=== PATIENT | female | born 2000 | race African-American/Black ===

== ENCOUNTER 2018-07-09 20:44 | Emergency (ER) | payer OTHER ==
[~2018-07-09] VITALS: Ht 160 cm; Wt 54.4 kg
[2018-07-09 20:50] VITALS: BP 123/61
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
[2018-07-09] MEDS ORDERED: Lidocaine HCl 2% Jelly 6ml Tube TOPIC ONE (21:30)
[2018-07-09 21:44] LABS: APPEARANCE,URINE CLEAR; BILIRUBIN, URINE NEGATIVE (NEGATIVE); COLOR,URINE PALE YELLOW; GLUCOSE, URINE (UA) NEGATIVE (NEGATIVE); KETONES,URINE 1+ (NEGATIVE); LEUKOCYTE ESTERASE ,URINE 1+ (NEGATIVE); NITRITE,URINE NEGATIVE (NEGATIVE); PH,URINE 7 (4.5-8.0); PROTEIN,URINE 3+ (NEGATIVE); UROBILINOGEN,URINE 4 MG/DL (0.0-1.0)
[2018-07-09] MEDS ORDERED: ACETAMINOPHEN500 M3 ORAL (22:17)
[2018-07-09] MEDS ORDERED: LD2JL30 TOPIC (22:17)
[2018-07-09] MEDS ORDERED: IBUPROFEN600 MG ORAL (22:17)
[2018-07-09 22:25] VITALS: BP 128/65
--- NOTE | 2018-07-09 22:25 | NUR ---
ED Nurse Note: patient is being discharged from ED alert and oriented x4, ambulatory with a steady gait, VSS. patient acknowledged the need to follow up with PMD within a week if symptoms dont improve, ID band removed, all belongings sent home with patient
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
--- NOTE | 2018-07-10 10:47 | Diagnostic Imaging Report ---
Indication: Back pain Comparison: None Findings: 3 views of the lumbar spine were obtained. No acute fracture or malalignment is identified. Vertebral body heights and disk spaces are well maintained. Posterior elements are unremarkable. Impression: No acute findings.
--- NOTE | 2018-07-10 10:50 | Diagnostic Imaging Report ---
Indication: Right arm pain Findings: 2 views of the right humerus were obtained. No acute fractures, malalignment, erosions or periostitis are identified. Bone mineralization is within normal limits. Soft tissues are unremarkable. Impression: Negative examination of the humerus
== END 2018-07-09 22:25 | disposition home or self-care (01) ==
LOC: EMR 21:09
DX: S40.021A Contusion of right upper arm, initial encounter (principal); S20.419A Abrasion of unspecified back wall of thorax, initial encounter; V03.90XA Pedestrian on foot injured in collision with car, pick-up truck or van, unspecified whether traffic or nontraffic accident, initial encounter; Y92.410 Unspecified street and highway as the place of occurrence of the external cause
CPT/HCPCS: 72020; 81003; 81025; 99284

== ENCOUNTER 2018-07-27 20:08 | Emergency (ER) | payer OTHER ==
[~2018-07-27] VITALS: Ht 157.5 cm; Wt 54.4 kg
[~2018-07-27 20:08] MED LIST: ACETAMINOPHEN500 M3 ORAL; IBUPROFEN600 MG ORAL; LD2JL30 TOPIC
[2018-07-27 20:25] VITALS: BP 119/72
--- NOTE | 2018-07-27 20:28 | NUR ---
ED Nurse Note: Pt c/o skin abscess (she concern maybe herpes and got it from her girlfriend) for 4 days, abscess is on upper lip, hands, perineum area. as per studio operations engineer in charge asessment and inspection in vaginal area, unknown leasions look "pimple like eruptions" that are located on the labia and is not activly bleeding.
[2018-07-27 20:59] LABS: APPEARANCE,URINE CLOUDY; BILIRUBIN, URINE NEGATIVE (NEGATIVE); GLUCOSE, URINE (UA) NEGATIVE (NEGATIVE); KETONES,URINE NEGATIVE (NEGATIVE); LEUKOCYTE ESTERASE ,URINE 2+ (NEGATIVE); NITRITE,URINE NEGATIVE (NEGATIVE); PH,URINE 6 (4.5-8.0); PROTEIN,URINE 3+ (NEGATIVE); UROBILINOGEN,URINE 4 MG/DL (0.0-1.0)
[2018-07-27] MEDS ORDERED: Cephalexin 500mg cap ORAL ONE (21:00)
[2018-07-27 21:01] LABS: COLOR,URINE YELLOW
--- NOTE | 2018-07-27 21:13 | Emergency Room Report ---
History of Present Illness General Chief Complaint: Skin Rash/Abscess Source: Patient Present Illness HPI Patient presents with several complaints. She has broken out with a rash on her palms underneath her nose with a lymph node under her chin and also in her pubic area. She believes she might have been exposed to herpes. Also she was told that her partner had impetigo several days ago. She denies any fevers or chills. She's on her period at this time. She denies any discharge or dysuria. She states to skin lesions are not painful. She denies having herpes in the past. This menstruation is normal for her. No upper respiratory symptoms, sore throat, nausea, vomiting, diarrhea, joint pain or other lymph node enlargement. She is worried but not depressed. Apparently her partner was just released from group home. Allergies: Coded Allergies: No Known Allergies (Unverified , 07/09/18) Patient History Past Medical History: see triage record Social History: Reports: smoking Social History Narrative Here with her father Now: No Reviewed Nursing Documentation: PMH: Agreed; PSxH: Agreed Nursing Documentation-PMH Past Medical History: No Stated History Review of Systems All Other Systems: negative except mentioned in HPI Physical Exam Vital Signs Date Time Temp Pulse Resp B/P (MAP) Pulse Ox O2 Delivery O2 Flow Rate FiO2 07/27/18 20:21 97.5 84 20 119/72 98 07/27/18 20:25 Room Air Sp02 EP Interpretation: reviewed, normal General Appearance: well appearing, no apparent distress, alert, GCS 15 Head: normocephalic, atraumatic Eyes: bilateral eye other - Contact lenses ENT: hearing grossly normal, normal pharynx, normal voice, moist mucus membranes, other - Pierced tongue Neck: full range of motion, supple Respiratory: lungs clear, no respiratory distress, speaking full sentences Cardiovascular #1: regular rate, rhythm Cardiovascular #2: 2+ radial (R) Gastrointestinal: normal inspection, normal bowel sounds Genitourinary: no CVA tenderness, other - Vesicular lesions mons pubis external genitalia normal Musculoskeletal: back normal, gait/station normal Neurologic: alert, oriented x3, normal gait, grossly normal Psychiatric: mood/affect normal - Concerned Skin: warm/dry, other - Papular lesions palms which are sparse and rare, not erythematous nontarget lesions and somewhat hyperpigmented approximately 1 mm round each. Excoriated hypopigmented oval underneath the nose. See genitals Lymphatic: adenopathy - Mid submandibular area, no tenderness and mobile approximately 1 x 1/2 cm Medical Decision Making Diagnostic Impression: Primary Impression: Impetigo Additional Impressions: Herpes simplex Submandibular lymphadenopathy ER Course Patient presents with several different skin lesions. Differential includes initial outbreak of herpes, impetigo, other cellulitis. The pulmonary lesions suggested some viral process including adult kfhc-svtb-zhp-mouth disease. They do not appear as herpetic whitlows. They are not erythema multiforme and do not appear to be contact dermatitis. With it recent history of a partner with impetigo the lesion on her face suggest this. Lesions on her mons pubis look like herpes simplex. As she is not previously had herpes we have to assume this is an initial outbreak and treatment is indicated. I discussed that any laboratory that we did this time would not be available and that treatment needed start. In addition Keflex will be used to cover the suspected impetigo. The pulmonary barron is or not painful and appear partially senescent. UA reflects menstruation. Patient was advised to follow-up with a clinic where further laboratory evaluation can be undertaken. Contact precautions were discussed with the patient and her father. Patient stable for outpatient observation and treatment. Laboratory Tests Test 07/27/18 20:41 Urine Color Yellow Urine Appearance Cloudy Urine pH 6 (4.5-8.0) Urine Specific [place] 1.020 (1.005-1.035) Urine Protein 3+ (NEGATIVE) H Urine Glucose (UA) Negative (NEGATIVE) Urine Ketones Negative (NEGATIVE) Urine Blood 4+ (NEGATIVE) H Urine Nitrite Negative (NEGATIVE) Urine Bilirubin Negative (NEGATIVE) Urine Urobilinogen 4 MG/DL (0.0-1.0) H Urine Leukocyte Esterase 2+ (NEGATIVE) H Urine RBC Tntc /HPF (0 - 2) H Urine WBC 10-15 /HPF (0 - 2) H Urine Squamous Epithelial Cells Few /LPF (NONE/OCC) Urine Bacteria Moderate /HPF (NONE) H Urine HCG, Qualitative Negative (NEGATIVE) Last Vital Signs Date Time Temp Pulse Resp B/P (MAP) Pulse Ox O2 Delivery O2 Flow Rate FiO2 07/27/18 21:31 97.5 68 18 122/71 98 Room Air Status: improved Disposition: HOME, SELF-CARE Condition: Improved Scripts Bacitracin (Bacitracin) 28.4 Gm Oint...g. 1 APPLIC TOPIC BID, #20 GM Prov: Jericho Lin MD 07/27/18 Cephalexin* (KEFLEX*) 500 Mg Capsule 500 MG ORAL EVERY 6 HOURS, #28 CAP Prov: Jericho Lin MD 07/27/18 Valacyclovir Hcl* (VALTREX*) 500 Mg Tablet 1000 MG ORAL TWICE A DAY, #14 TAB Prov: Jericho Lin MD 07/27/18 Jericho Lin MD Jul 27, 2018 21:13
[2018-07-27] MEDS ORDERED: CEPHALEXIN500 MG ORAL (21:16)
[2018-07-27] MEDS ORDERED: VALACYCLOVIR500 MG ORAL (21:16)
[2018-07-27] MEDS ORDERED: BACITRACIN15 GM TOPIC (21:16)
[2018-07-27 21:31] VITALS: BP 122/71
--- NOTE | 2018-07-27 21:31 | NUR ---
ED Nurse Note: Pt is DC per ERMD order. pt is alert and oriented times 4. pt vital signs, status and condition are within normal limits. pt has left with all belongings including DC notes and prescription. pt is able to understand DC notes and prescriptions. pt is instructed to follow up with primary provider as soon as possible. pt is stable for discharge. pt is instructed to return as soon as possible to ER if any reoccurance of symptoms. all pt status, vital signs, and condition is reported to ERMD prior to DC. pt is able to ambulate with steady gait. PT ID is DC.
== END 2018-07-27 21:31 | disposition home or self-care (01) ==
LOC: EMR 21:21
DX: L01.00 Impetigo, unspecified (principal); B00.9 Herpesviral infection, unspecified; R59.0 Localized enlarged lymph nodes; F17.200 Nicotine dependence, unspecified, uncomplicated
CPT/HCPCS: 81003; 81025; 87086; 99283

== ENCOUNTER 2018-08-03 12:14 | Emergency (ER) | payer OTHER ==
[~2018-08-03] VITALS: Ht 157.5 cm; Wt 54.4 kg
[~2018-08-03 12:14] MED LIST changes: +BACITRACIN15 GM TOPIC; +CEPHALEXIN500 MG ORAL; +VALACYCLOVIR500 MG ORAL
[2018-08-03 12:35] VITALS: BP 104/62
--- NOTE | 2018-08-03 12:35 | NUR ---
ED Nurse Note: PT WALKED IN TO ER TODAY FROM HOME. AOX4. PT C/O PERSISTENT LESIONS TO GENITAL AREA. PT STATES SHE WAS SEEN LAST WEEK AT [facility] AND WAS TOLD SHE HAD GENITAL HERPES AND WAS GIVEN MEDICATIONS. HOWEVER, PT DOES NOT BELIEVE THEY ARE WORKING. PT STATES THAT SHE IS NOT HAVING ANY NEW SYMPTOMS BUT IS CONCERNED BECAUSE LESIONS HAVE NOT GONE AWAY DESPITE COMPLIANCE WITH MEDICATION. PT DENIES PAIN, SWELLING, DISCHARGE, OR PAINFUL URINATION.
--- NOTE | 2018-08-03 13:21 | Emergency Room Report ---
History of Present Illness General Chief Complaint: General Complaint Source: Patient Present Illness HPI 18 year-old female with no significant past medical history here for follow-up after her visit last week at [facility] emergency room and her diagnosis of genital herpes. Patient reports that the medication that was given for herpes acyclovir was not required treatment as she does not think that this is incorrect medication for the lesions that she is experiencing. Patient has been tested for herpes and mentions that the results are pending. She reports that the genital lesions have been tried without and no longer painful. Denies vaginal discharge, pruritus, dysuria, and all other urinary symptoms. She has not been sexually active since last week. Patient is curious to know whether genital herpes is going to be transmitted via contact with skin. Denies fever and chills, SOB, chest pain Allergies: Coded Allergies: No Known Allergies (Unverified , 07/09/18) Patient History Past Medical History: see triage record Past Surgical History: unable to obtain Pertinent Family History: none Last Menstrual Period: few days Now: No Immunizations: UTD Reviewed Nursing Documentation: PMH: Agreed; PSxH: Agreed Nursing Documentation-PMH Past Medical History: No Stated History Review of Systems All Other Systems: negative except mentioned in HPI Physical Exam Vital Signs Date Time Temp Pulse Resp B/P (MAP) Pulse Ox O2 Delivery O2 Flow Rate FiO2 08/03/18 12:32 99.0 73 18 106/57 98 Room Air Sp02 EP Interpretation: reviewed, normal General Appearance: normal inspection, well appearing, no apparent distress, alert Head: normocephalic, atraumatic Eyes: bilateral eye normal inspection, bilateral eye PERRL ENT: normal ENT inspection, normal pharynx Neck: normal inspection, supple Respiratory: normal inspection, lungs clear, no rhonchi, no wheezing Cardiovascular #1: normal inspection, no edema Gastrointestinal: normal inspection, soft, no mass Rectal: deferred Genitourinary: other - dried vaginal ulcers on labia majora Musculoskeletal: normal inspection, back normal Neurologic: normal inspection, alert Psychiatric: normal inspection, judgement/insight normal, memory normal Skin: normal inspection, normal color, no rash, warm/dry Lymphatic: normal inspection, no adenopathy Medical Decision Making PA Attestation all diagnosis and treatment plans were reviewed and discussed with my supervising physician Dr. Loza Diagnostic Impression: Primary Impression: Genital lesion, female ER Course 18 year-old female with no significant past medical history here for follow-up after her visit last week at [facility] emergency room and her diagnosis of genital herpes. Patient reports that the medication that was given for herpes acyclovir was not required treatment as she does not think that this is incorrect medication for the lesions that she is experiencing. Patient has been tested for herpes and mentions that the results are pending. She reports that the genital lesions have been tried without and no longer painful. Denies vaginal discharge, pruritus, dysuria, and all other urinary symptoms. She has not been sexually active since last week. Patient is curious to know whether genital herpes is going to be transmitted via contact with skin. Denies fever and chills, SOB, chest pain Ddx considered but are not limited to genital herpes, HPV, folliculitis Vital signs: are WNL, pt. is afebrile H&PE are most consistent with genital herpes ORDERS: none required at this time, the diagnosis is clinical ED INTERVENTIONS: None required at this time. DISCHARGE: At this time pt. is stable for d/c to home. Will provide printed patient care instructions, and any necessary prescriptions. Care plan and follow up instructions have been discussed with the patient prior to discharge. a list of STI clinics given to patient for further pap and testing Last Vital Signs Date Time Temp Pulse Resp B/P (MAP) Pulse Ox O2 Delivery O2 Flow Rate FiO2 08/03/18 12:32 99.0 73 18 106/57 98 Room Air Disposition: HOME, SELF-CARE Condition: Stable Patient Instructions: Genital Herpes, Genital Warts, [id number] Moe Swift Aug 03, 2018 13:21
[2018-08-03 13:30] VITALS: BP 110/64
--- NOTE | 2018-08-03 13:30 | NUR ---
ED Nurse Note: PT SITTING PEACEFULLY IN BED IN NAD. AOX4. PRESCRIPTIONS AND DISCHARGE PAPERWORK EXPLAINED TO PT. PT VERBALIZES UNADERSTANDING AND ALL QUESTIONS ANSWERED. PRESCRIPTIONS AND DISCHARGE PAPERWORK GIVEN TO PT AND ID WRISTBAND REMOVED. PT GIVEN RESOURCES TO FREE CLINICS AND STATES SHE WILL LOOK INTO SETTING UP AN APPOINTMENT. PT WALKED OUT OF ER WITH STEADY GAIT AND ALL BELONGINGS.
== END 2018-08-03 13:30 | disposition home or self-care (01) ==
LOC: EMR 13:00
DX: N90.89 Other specified noninflammatory disorders of vulva and perineum (principal)
CPT/HCPCS: 99282